=== PATIENT | female | born 1955 | race Caucasian/White ===

== ENCOUNTER → 2017-04-06 | Outpatient (CLI) | payer BC, OTHER ==
[~2017-04-06] VITALS: Ht 160 cm; Wt 68.6 kg
[~2017-04-06] MED LIST: ALEVE220 MG PO; APAP500 PO; DICLOFENAC SODI75 MG PO; ESTRADIOL 1 MG T1 M1 PO; HYDROCODONE-AP1 EAC6 PO; MELATONIN10 M1 PO; NORTRIPTYLINE H10 M2 PO; OXYCODONE-ACET1 EAC2 PO; TUMERIC/CURCUMIN PO
--- NOTE | ~2017-04-06 | HPC ---
[facility] [place] [address] PAIN MANAGEMENT CONSULTATION Name: ARTHUR WALL Room #: REG Marty Nawaf.#: [id number] Admission: 04/06/17 Attend Phys: Catracho Ravi DO Discharge: Date of : 51 Report #: [id number] THIS REPORT FOR: //name// CC: [facility] physician/PCP Catracho Ravi The patient is a 61-year-old female, prior seen in the pain clinic about 2 years ago, last visit was May 2015. Had cervical radicular symptoms at that time. Returns to pain clinic today with a new complaint, notes she has pain in the low back. She notes pain began about 6 weeks ago. She used to play golf about 4 times a week 6 weeks ago without antecedent trauma and overuse. She developed pain in the low back, it has been quite problematic. She sought care transition mgr, has had massage and physical therapy, all with nominal efficacy. She was seen by orthopedic surgeon who gave her bilateral trochanteric bursa injections with nominal efficacy. She notes pain is dull and aching, rates at 2 on a VAS at present, but it becomes quite problematic with standing and walking. States it feels like there is a great deal of weight pressing down on her back when she stands. Pain is primarily low back and in the glute. No significant radicular symptoms are noted. Has subjective weakness in her legs associated with exacerbations of pain. PHYSICAL EXAMINATION: GENERAL: Shows a 61-year-old female, BMI is 26.8 kilograms per meter squared. VITAL SIGNS: Blood pressure 134/77, pulse 51, respirations are 14. NEUROLOGIC: Alert and oriented to person, place and time, judged to be a reasonable historian. MUSCULOSKELETAL: Rises from the chair easily. Gait is tandem. Lumbar flexion is modestly limited. Very tender over the SI joints. Positive ELMER test bilaterally. Lower extremity strength is symmetric. Straight leg raise is negative. Patellar and Achilles reflexes are preserved. MRI is from 04/02/2017, shows minimal lumbar spondylosis in the low lumbar spine. No evidence of significant central stenosis and neural foraminal stenosis at any level. There is some minimal bulging at L3-L4 and an annular tear at L4-L5. Again, this does not correlate with significant classic L4 radiculopathy. ASSESSMENT: Symptomatic sacroiliac joint dysfunction with clinical exam and history, history of cervical radiculopathy, possible component of neurogenic claudication, lumbar radiculopathy, but again symptoms point primarily to sacroiliac mediated pain at present. The patient was seen for prolonged visit today from approximately 10:00 a.m. to 10:30, taken to the procedure room at 10:36. [address] [address] PAIN MANAGEMENT CONSULTATION Name: ARTHUR WALL Room #: REG FELIZ Jones#: [id number] Admission: 04/06/17 Attend Phys: Catracho Ravi DO Discharge: Date of : 51 Report #: [id number] PROCEDURE: Bilateral SI joint injection under fluoroscopy. PROCEDURE NOTE: After written and informed consent was obtained including risk of infection, nerve trauma, increased pain and weakness, the patient wishes to proceed. The patient was taken to the fluoroscopy suite, placed in the prone position. The sacroiliac joint was visualized using the C-arm, turned in an oblique fashion to align the joint. The skin overlying the area was cleansed with ChloraPrep. Skin wheal with Xylocaine was raised. A 22 gauge spinal needle was inserted into the inferior aspect of the joint. A low volume extension tubing was then attached to the needle after the stylet was removed. Negative aspiration was accomplished. A 1 mL of Omnipaque was injected which showed spread within the SI joint. 40 mg triamcinolone plus 2 mL of 0.5% preservative-free bupivacaine was injected into the joint. Needle was removed. Attention was then turned to the contralateral joint which was treated in an identical fashion. After both needles were removed the prep was washed off. Two Band-Aids were applied over the puncture sites. The patient was allowed to ambulate to the recovery room, monitored for an appropriate period of time, discharged in good and stable condition. The patient was referred to physical therapy for core strengthening. By: [id number] Catracho Ravi DO /nt
[2017-04-06 09:42] VITALS: BP 134/77
== END | disposition home or self-care (01) ==
LOC: PAIN 07:28
DX: M53.3 Sacrococcygeal disorders, not elsewhere classified (principal); M54.12 Radiculopathy, cervical region; M54.16 Radiculopathy, lumbar region

== ENCOUNTER → 2017-05-07 | Outpatient (CLI) | payer BC, OTHER ==
[~2017-05-07] VITALS: Ht 160 cm; Wt 67.3 kg
--- NOTE | ~2017-05-07 | HPC ---
[facility] [place] [address] PAIN MANAGEMENT CONSULTATION Name: ARTHUR WALL Room #: REG [facility] [id number] Admission: 05/07/17 Attend Phys: Catracho Ravi DO Discharge: Date of : 51 Report #: [id number] THIS REPORT FOR: //name// CC: [facility] physician/PCP Catracho Clement MD DATE OF SERVICE: 05/07/2017 The patient is a 61-year-old female, prior seen in the pain clinic 04/06/2017, given bilateral SI joint injections and referred to physical therapy. She had prior been seen for cervical radiculopathy back in 2014. She returns to pain clinic today noting pain continues to be problematic. SI injection at last visit did afford good yet transient relief of symptoms, the patient had specifically 50% overall improvement of baseline pain. Pain has gradually begun to recur back to baseline. She notes pain is across the low back, exacerbated with leaning forward, flexion, pushing and pulling. Relief with medication including naproxen sodium and acetaminophen. PHYSICAL EXAMINATION: Shows a 61-year-old female, BMI is 26.3 kilograms per meter squared. Subjective Visual Analog Scale is 7. Vital signs are stable. Rises from chair using armrest. Gait is tandem. Lower extremity strength is preserved. Straight leg raise is negative. Positive Charmaine test bilaterally with pain, primarily right-sided. ASSESSMENT: Symptomatic right greater than left sacroiliac mediated pain. RECOMMENDATIONS: Discussion with the patient today about therapeutic option. She has been doing physical therapy status post prior SI injection approximately 1 month ago. After discussion with the patient today, we have elected to move towards a more definitive therapy. We talked about iFuse (percutaneous sacroiliac joint fusion). Today, we have elected to proceed with a right SI joint injection under fluoroscopy without benefit of steroid. We will refer the patient to Dr. Clement for consideration for right SI percutaneous fusion. ASSESSMENT: Symptomatic lumbosacral spondylosis, sacroiliac mediated pain. PROCEDURE: Right SI joint injection under fluoroscopy without steroid. PROCEDURE NOTE: After written informed consent was obtained, the patient was taken to the fluoroscopy suite and placed in a prone position. After sterile prep and drape, skin wheal was raised. A 22-gauge stylet needle was placed to contact the inferior aspect of the right SI joint. Negative aspiration was [address] [address] PAIN MANAGEMENT CONSULTATION Name: ARTHUR WALL Room #: REG FELIZ Jones#: [id number] Admission: 05/07/17 Attend Phys: Catracho Ravi DO Discharge: Date of : 51 Report #: [id number] accomplished. 1 mL of Omnipaque was injected, which showed spread within the SI joint. There was trace extrusion. This was followed with 1 mL of a 50:50 mix of 0.5% preservative-free bupivacaine plus 1.5% preservative-free Xylocaine with 1:200,000 epinephrine. The patient had a Visual Analog Scale score of 7 on admission, noted pain was absent on discharge when sitting; with standing, walking, bending pain increased a little to 3/10, still greater than 60% overall improvement in baseline pain. We will have the patient follow up with Dr. Clement for consideration for injection. She was given a copy of the fluoroscopic image showing Omnipaque spread within the SI joint. <ELECTRONICALLY SIGNED> By: Catracho Ravi DO 05/09/17 [id number] Catracho Ravi DO /nt
[2017-05-07 13:00] VITALS: BP 125/81
== END | disposition home or self-care (01) ==
LOC: PAIN 07:23
DX: M53.3 Sacrococcygeal disorders, not elsewhere classified (principal); M47.897 Other spondylosis, lumbosacral region; Z98.890 Other specified postprocedural states

== ENCOUNTER → 2018-07-08 | Outpatient (CLI) | payer OTHER ==
[~2018-07-08] VITALS: Ht 160 cm; Wt 66.5 kg
[~2018-07-08] MED LIST changes: +HYDROCODON-ACE1 EAC7 PO
--- NOTE | ~2018-07-08 | HPC ---
[facility] [address] [place] [address] PAIN MANAGEMENT CONSULTATION Name: ARTHUR WALL Room #: REG [facility].#: [id number] Admission: 07/08/18 Attend Phys: Doroteo Hameed MD Discharge: Date of : 51 Report #: [id number] THIS REPORT FOR: //name// CC: [facility] physician/PCP Dortoeo Hameed DATE OF SERVICE: 07/08/2018 Followup visit for chronic pain. LAST VISIT: 05/07/2017 HISTORY OF PRESENT ILLNESS: The patient returns to the pain clinic today in followup. Due to insurance restrictions, she was not able to follow in my clinic and saw Dr. Mcneil at [place]. In January, she underwent 2 diagnostic medial branch nerve block procedures followed by radiofrequency ablation for her low back pain, but had no relief. She continues to complain of pain in her low back and is here today for further evaluation. Pain has been ongoing since 08/2014. She has remained active and exercising when she can. If she can, she would like to play golf. Pain is often worse during the day with standing and walking. She receives some relief with the use of anti-inflammatory medication and the use of heat. The pain is currently bilateral in the area of the lumbosacral segment. There is some localized discomfort there. It does not have significant radiating pattern. MEDICATIONS: Estradiol and melatonin. ALLERGIES: None. PAST MEDICAL HISTORY: Remarkable for ankle pinning in 1974. She had a hysterectomy in 2012. Recent arthroscopic surgery of both right and left hip performed in the last [address] 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 PQRS REVIEW: 1. She has no significant osteoarthritis. 2. BMI 26. 3. Vital Signs: Blood pressure 127/70. 4. Pain intensity 4/10. 5. She is not a fall risk. 6. She is on no blood thinners. 7. No history of hypertension. 8. She does not use opioid medication. 9. She has completed an opioid risk tool and her pain score is 0. [address] [address] PAIN MANAGEMENT CONSULTATION Name: ARTHUR WALL Room #: REG [facility].#: [id number] Admission: 07/08/18 Attend Phys: Doroteo Hameed MD Discharge: Date of : 51 Report #: [id number] 10. The functional assessment tool is high, especially for enjoyment of life, relationships with others and mood. PHYSICAL EXAMINATION: As noted. She moves easily from sitting to standing position. She ambulates with a smooth gait. She has no antalgic features. She is able to bend forward at the waist and touch her toes to the floor. This does not reproduce pain. Back extension is performed with excellent range without any discomfort. Rotational movement, [id number], tilt also performed without discomfort. ELMER test is negative. Pain in the hips is negative for internal and external rotation. Sensation and strength are normal in lower extremities. She does have some pinpoint localized tenderness over the lumbosacral segment. Pain score is 4/10. X-ray exam includes MRI dated 04/02/2017, which shows broad-based posterior disk bulging without stenosis at L2-L3 and at L3-L4 anterolisthesis. This is mild in nature. At L4-L5, there is a small central right paracentral annular tear without stenosis. IMPRESSION: Chronic localized low back pain. RECOMMENDATION: She has had recent hip procedures, but her pain does not appear to be emanating from there. She may have discogenic pain and I would at least try an epidural steroid injection. Her ongoing physical therapy should continue to progress following hip surgery and should include exercises that address back stabilization. We discussed this at some length. Twenty five minutes consultation. I provided her with a small amount of hydrocodone 5/325 one tablet b.i.d. for pain during recovery and also for severe low back pain, which is now chronic in nature dating back 4 years. Followup is planned in 1 month. May consider epidural injection at that time. By: [id number] Doroteo Haemed MD /nt
[2018-07-08 12:44] VITALS: BP 127/70
== END ==
LOC: PAIN 02:03
DX: M54.5 Low back pain (principal); G89.29 Other chronic pain; Z79.899 Other long term (current) drug therapy

== ENCOUNTER → 2018-08-12 | Outpatient (CLI) | payer OTHER ==
[~2018-08-12] VITALS: Ht 160 cm; Wt 69.0 kg
[~2018-08-12] MED LIST changes: +CELEBREX 200 M200 M1 PO
--- NOTE | ~2018-08-12 | HPC ---
[facility] [place] [address] PAIN MANAGEMENT CONSULTATION Name: ARTHUR WALL [facility] #: [facility] [id number] Admission: 08/12/18 Attend Phys: Doroteo Hameed MD Discharge: Date of : 51 Report #: [id number] THIS REPORT FOR: //name// CC: FAM unknown Doroteo Hameed DATE OF SERVICE: 08/12/2018 Followup visit for low back pain with broad-based disk bulging and stenosis at L2-3, L3-4 with anterolisthesis, center tear of L4-L5 with right paracentral annular tear. PROCEDURE: Lumbar epidural steroid injection. INDICATIONS FOR PROCEDURE: The patient was assessed on 07/08/2018. We have had preauthorization approval to go forward with an injection. Her pain has remained a bit of a conundrum. She has had recent hip procedures with ongoing pain. She has had treatments of her sacroiliac joint and also Dr. Mcneil has performed radiofrequency ablation with no success. She is here today for an epidural injection. We discussed potential risks and benefits and her goals of treatment. Questions answered and she is ready to proceed. DESCRIPTION OF PROCEDURE: The patient was taken to fluoroscopic suite, placed prone, skin prepped with ChloraPrep. Skin anesthetized over the L4-L5 interspace to the right of midline. A 20-gauge Tuohy epidural needle advanced in the epidural space with loss of resistance technique. There was no blood or CSF aspirated. 1 mL of Omnipaque injected. Good spread of dye was observed in the epidural space, followed by 3 mL of 0.5% lidocaine mixed with 80 mg triamcinolone. She tolerated the procedure well and was observed for 45 minutes and discharged. Followup visit planned in the pain clinic in 1-2 months. By: [id number] Doroteo Hameed MD /nt
[2018-08-12 12:34] VITALS: BP 127/63
--- NOTE | 2018-08-12 12:35 | NUR ---
Pain Clinic Assessment: 1. History of Osteoarthritis: Not Applicable History of Rheumatoid Arthritis: Not Applicable 2. Height: 5 ft. 3 in. 160.0 cm. Weight: 152.2 lb. oz. 69.037 kg. Patient's BMI: 27.0 3. Vital Signs: BP: 127/63 Pulse: 58 Resp: 18 Temp: 02 Sat: 97 ECG Mon: 4. Pain Intensity: 5 5. Fall Risk: Dizziness: N Needs help standing or walking: N Fallen in the last 3 months: N Fall risk comments: 6. Patient on Blood Thinner: None 7. History of Hypertension: N 8. Opioid Therapy greater than 6 weeks: N Opiate Contract Signed: 9. Risk Assessment Tool Provided: LOW RISK 0/3 10. Functional Assessment Tool: 57/70 11. Recreational Drug Use: Never Drug Type: Tobacco Use: Never Smoker Tobacco Type: Amount or Packs/day: How Many Years: Alcohol Use: No Frequency: Quant:
== END | disposition home or self-care (01) ==
LOC: PAIN 07:16
DX: M51.26 Other intervertebral disc displacement, lumbar region (principal); M48.061 Spinal stenosis, lumbar region without neurogenic claudication; M43.16 Spondylolisthesis, lumbar region

== ENCOUNTER → 2018-10-31 | Outpatient (CLI) | payer OTHER ==
[~2018-10-31] VITALS: Ht 160 cm; Wt 68.0 kg
[~2018-10-31] MED LIST changes: +ROXICODONE5 M2 PO
--- NOTE | ~2018-10-31 | HPC ---
[facility] [address] [address] [place] [address] PAIN MANAGEMENT CONSULTATION Name: ARTHUR WALL Room #: REG [facility].#: [id number] Admission: 10/31/18 ������������������ Attend Phys: Doroteo Hameed MD Discharge: ������������������ Date of : 51 Report #: [id number] THIS REPORT FOR: //name// CC: [facility] physician/PCP FAM unknown Doroteo Hameed DATE OF SERVICE: 10/31/2018 CHIEF COMPLAINT: Low back pain with anterolisthesis of L3 on L4, central tear of L4-L5 and chronic low back pain. The patient returns today for repeat epidural steroid injection. The initial injection was somewhat helpful. Duration of response was not as long as we had hoped. We discussed today repeating the injection at L5-S1. Her last injection was at L4-L5. Pain is low. There is some consideration given to her facet syndrome or perhaps even a sacroiliac joint dysfunction. Much of her pain seems to be mechanical in nature, but there may be a radicular component as well. We decided to repeat the epidural injection today at a lower level, but we will consider the possibility of repeating radiofrequency. PHYSICAL EXAMINATION: She is a pleasant 63-year-old. Blood pressure 141/59, heart rate 16 and respirations 14. She can move independently from sitting to standing position. She has excellent range of motion of the lumbar spine in flexion and extension neither of which dramatically increased pain. Lateral tilt and [id number]-[id number]-iwvw motions do reproduce some pain low in the lumbosacral segment. She has localized tenderness over the lower facet joints. This may also be from the upper sacroiliac regions. The pain is not exquisite in this region. Straight leg raising is negative for radicular symptoms into the legs, but she does have some pain into her hips. She describes it as a dull catching sensation. Intensity is a 7-8/10. IMPRESSION: Low back pain with degenerative disk disease. Some lumbosacral spondylosis with radiculopathy. RECOMMENDATION: Epidural steroid injection L5-S1 under fluoroscopic guidance. PROCEDURE: She was taken to the fluoroscopic suite, placed prone, skin prepped with ChloraPrep. Skin anesthetized over the L5-S1 interspace. A 20-gauge Tuohy epidural needle was advanced into the epidural space slightly to the right of midline. A 1 mL of Omnipaque was injected. Good spread of dye observed all along the right side, but not encroaching across to the left. I injected half of my triamcinolone 40 mg along with 2 mL of 0.5% lidocaine in that location. The needle was then withdrawn and repositioned slightly to the left of midline where a good loss of resistance was once again obtained. 0.25 mL of Omnipaque demonstrated epidural spread on the left and I injected on this side an [facility] [address] [place] [address] PAIN MANAGEMENT CONSULTATION Name: GUERAARTHUR EAGLE Diomedes Room #: REG FELIZ Jones#: [id number] Admission: 10/31/18 ������������������ Attend Phys: Doroteo Hameed MD Discharge: ������������������ Date of : 51 Report #: [id number] additional 40 mg of triamcinolone and 2 mL of 0.5% lidocaine. She tolerated the procedure well. She was taken to the recovery room where she was observed for 45 minutes. There were no complications. Her pain score was 0 at discharge and will follow up in a month or two. ��������������������������������������������� ���������������������������������������� By: ��������������������������������������������� [id number] Doroteo Hameed MD /nt
[2018-10-31 14:05] VITALS: BP 141/59
--- NOTE | 2018-10-31 14:24 | NUR ---
Pain Clinic Assessment: 1. History of Osteoarthritis: Not Applicable History of Rheumatoid Arthritis: Not Applicable 2. Height: 5 ft. 3 in. 160.0 cm. Weight: 150.0 lb. oz. 68.040 kg. Patient's BMI: 26.6 3. Vital Signs: BP: 141/59 Pulse: 61 Resp: 14 Temp: 02 Sat: 97 ECG Mon: 4. Pain Intensity: 7-8 5. Fall Risk: Dizziness: N Needs help standing or walking: N Fallen in the last 3 months: N Fall risk comments: 6. Patient on Blood Thinner: None 7. History of Hypertension: N 8. Opioid Therapy greater than 6 weeks: N Opiate Contract Signed: 9. Risk Assessment Tool Provided: LOW RISK 0/3 10. Functional Assessment Tool: 57/70 11. Recreational Drug Use: Never Drug Type: Tobacco Use: Never Smoker Tobacco Type: Amount or Packs/day: How Many Years: Alcohol Use: No Frequency: Quant:
== END | disposition home or self-care (01) ==
LOC: PAIN 07:02
DX: M51.16 Intervertebral disc disorders with radiculopathy, lumbar region (principal); M53.3 Sacrococcygeal disorders, not elsewhere classified; Z79.899 Other long term (current) drug therapy; Z98.890 Other specified postprocedural states; G89.29 Other chronic pain; M54.5 Low back pain

== ENCOUNTER → 2019-02-24 | Outpatient (CLI) | payer OTHER ==
[~2019-02-24] VITALS: Ht 160 cm; Wt 67.0 kg
[~2019-02-24] MED LIST changes: +DICLOFENAC SOD50 M1 PO
--- NOTE | ~2019-02-24 | HPC ---
[facility] [address] [address] PAIN MANAGEMENT CONSULTATION Name: ARTHUR WALL [facility] [id number] Admission: 02/24/19 ������������������ Attend Phys: Doroteo Hameed MD Discharge: ������������������ Date of : 51 Report #: [id number] THIS REPORT FOR: //name// CC: [facility] physician/PCP FAM unknown Doroteo Hameed DATE OF SERVICE: 02/24/2019 The patient is in pain clinic today for 25-minute followup visit. Multiple questions were asked and answered about treatment of her chronic low back pain. She had a number of questions about anti-inflammatory medications and we went through great detail discussing the NSAID class, the risks and benefits. If she takes naproxen sodium twice daily, she does get relief. She would like to continue on it. I discussed the GI, renal and cardiac complications and side effects. She described the pain as a sharp pain at times and sometimes dull. It feels like there is a catch in her back. Pain intensity is 7-8/10. She has received benefit from epidural injections up to 90% pain relief for 2-3 months at times. She would like to get another epidural injection if she could. PHYSICAL EXAMINATION: She is pleasant, alert and oriented. No signs of anxiety, depression or overmedication. She is 5 feet 3 inches with a BMI of 26.2. Blood pressure 126/65, heart rate 56, respirations 14. She moves easily from sitting to standing position without difficulty. She has modest straight leg raising bilaterally. Sensation is intact. No focal weakness is noted. Deep tendon reflexes are equal. IMPRESSION: 1. Chronic low back pain with radiculopathy. RECOMMENDATION: Epidural steroid injection under fluoroscopic guidance. She was taken to fluoroscopic suite for treatment. She was placed prone, skin was prepped with ChloraPrep. Skin anesthetized over the L4-L5 interspace and a 20-gauge Tuohy epidural needle advanced in the epidural space with loss of resistance technique. There was no blood or CSF aspirated. A 1 mL of Omnipaque injected. Good spread of dye observed in the epidural space, was followed by 3 mL of 0.5% lidocaine mixed with 80 mg triamcinolone. She tolerated the procedure well and was observed for 45 minutes and discharged. [address] [address] PAIN MANAGEMENT CONSULTATION Name: ARTHUR WALL Room #: REG Marty Jones#: [id number] Admission: 02/24/19 ������������������ Attend Phys: Doroteo Hameed MD Discharge: ������������������ Date of : 51 Report #: [id number] Followup visit planned as needed. ��������������������������������������������� ���������������������������������������� By: ��������������������������������������������� [id number] Doroteo Hameed MD /nt
[2019-02-24 10:42] VITALS: BP 126/65
--- NOTE | 2019-02-24 11:02 | NUR ---
Pain Clinic Assessment: 1. History of Osteoarthritis: Not Applicable History of Rheumatoid Arthritis: Not Applicable 2. Height: 5 ft. 3 in. 160.0 cm. Weight: 147.6 lb. oz. 66.951 kg. Patient's BMI: 26.2 3. Vital Signs: BP: 126/65 Pulse: 56 Resp: 14 Temp: 02 Sat: 97 ECG Mon: 4. Pain Intensity: 7-8 5. Fall Risk: Dizziness: N Needs help standing or walking: N Fallen in the last 3 months: N Fall risk comments: 6. Patient on Blood Thinner: None 7. History of Hypertension: N 8. Opioid Therapy greater than 6 weeks: N Opiate Contract Signed: 9. Risk Assessment Tool Provided: LOW RISK 0/3 10. Functional Assessment Tool: 57/70 11. Recreational Drug Use: Never Drug Type: Tobacco Use: Never Smoker Tobacco Type: Amount or Packs/day: How Many Years: Alcohol Use: No Frequency: Quant:
== END | disposition home or self-care (01) ==
LOC: PAIN 06:52
DX: M54.16 Radiculopathy, lumbar region (principal); G89.29 Other chronic pain; Z98.890 Other specified postprocedural states; Z79.891 Long term (current) use of opiate analgesic

== ENCOUNTER → 2020-10-07 | Outpatient (CLI) | payer OTHER, MEDICARE ==
[~2020-10-07] VITALS: Ht 160 cm; Wt 65.8 kg
[~2020-10-07] MED LIST changes: +ALEVE220 M1 PO; +TYLENOL325 M1 PO
[2020-10-07 10:11] VITALS: BP 121/70
--- NOTE | 2020-10-07 10:39 | NUR ---
Pain Clinic Assessment: 1. History of Osteoarthritis: Not Applicable History of Rheumatoid Arthritis: Not Applicable 2. Height: 5 ft. 3 in. 160.0 cm. Weight: 145.0 lb. oz. 65.772 kg. Patient's BMI: 25.7 3. Vital Signs: BP: 121/70 Pulse: 56 Resp: 14 Temp: 02 Sat: 98 ECG Mon: 4. Pain Intensity: 4 5. Fall Risk: Dizziness: N Needs help standing or walking: N Fallen in the last 3 months: N Fall risk comments: 6. Patient on Blood Thinner: None 7. History of Hypertension: N 8. Opioid Therapy greater than 6 weeks: N Opiate Contract Signed: 9. Risk Assessment Tool Provided: LOW RISK 0/3 10. Functional Assessment Tool: 11. Recreational Drug Use: Never Drug Type: Tobacco Use: Never Smoker Tobacco Type: Amount or Packs/day: How Many Years: Alcohol Use: No Frequency: Quant:
== END | disposition home or self-care (01) ==
LOC: PAIN 06:40
PROVIDERS: ATTEND Anesthesiology Pain Medicine
DX: M79.18 Myalgia, other site (principal); M75.21 Bicipital tendinitis, right shoulder; M54.16 Radiculopathy, lumbar region; M43.16 Spondylolisthesis, lumbar region; Z98.890 Other specified postprocedural states; Z79.899 Other long term (current) drug therapy

== ENCOUNTER → 2020-11-11 | Outpatient (CLI) | payer OTHER, MEDICARE ==
[~2020-11-11] VITALS: Ht 160 cm; Wt 64.1 kg
[2020-11-11 13:03] VITALS: BP 127/49
--- NOTE | 2020-11-11 13:18 | NUR ---
Pain Clinic Assessment: 1. History of Osteoarthritis: Not Applicable History of Rheumatoid Arthritis: Not Applicable 2. Height: 5 ft. 3 in. 160.0 cm. Weight: 141.4 lb. oz. 64.139 kg. Patient's BMI: 25.1 3. Vital Signs: BP: 127/49 Pulse: 63 Resp: 14 Temp: 02 Sat: 100 ECG Mon: 4. Pain Intensity: 4 5. Fall Risk: Dizziness: N Needs help standing or walking: N Fallen in the last 3 months: N Fall risk comments: 6. Patient on Blood Thinner: None 7. History of Hypertension: N 8. Opioid Therapy greater than 6 weeks: N Opiate Contract Signed: 9. Risk Assessment Tool Provided: LOW RISK 0/3 10. Functional Assessment Tool: 11. Recreational Drug Use: Never Drug Type: Tobacco Use: Never Smoker Tobacco Type: Amount or Packs/day: How Many Years: Alcohol Use: No Frequency: Quant:
== END | disposition home or self-care (01) ==
LOC: PAIN 10:56
PROVIDERS: ATTEND Anesthesiology Pain Medicine
DX: M54.16 Radiculopathy, lumbar region (principal); G89.29 Other chronic pain; Z98.890 Other specified postprocedural states; Z79.899 Other long term (current) drug therapy

== ENCOUNTER → 2021-05-23 | Outpatient (CLI) | payer OTHER, MEDICARE ==
[~2021-05-23] VITALS: Ht 160 cm; Wt 66.2 kg
[2021-05-23 09:33] VITALS: BP 146/69
--- NOTE | 2021-05-23 09:39 | NUR ---
[facility] Assessment: 1. History of Osteoarthritis: Not Applicable History of Rheumatoid Arthritis: Not Applicable 2. Height: 5 ft. 3 in. 160.0 cm. Weight: 146.0 lb. oz. 66.225 kg. Patient's BMI: 25.9 3. Vital Signs: BP: 146/69 Pulse: 58 Resp: 14 Temp: 02 Sat: 100 ECG Mon: 4. Pain Intensity: 5 5. Fall Risk: Dizziness: N Needs help standing or walking: N Fallen in the last 3 months: N Fall risk comments: 6. Patient on Blood Thinner: None 7. History of Hypertension: N 8. Opioid Therapy greater than 6 weeks: N Opiate Contract Signed: 9. Risk Assessment Tool Provided: LOW RISK 0 10. Functional Assessment Tool: 11. Recreational Drug Use: Never Drug Type: Tobacco Use: Never Smoker Tobacco Type: Amount or Packs/day: How Many Years: Alcohol Use: No Frequency: Quant:
== END | disposition home or self-care (01) ==
LOC: PAIN 06:54
PROVIDERS: ATTEND Anesthesiology Pain Medicine
DX: M47.816 Spondylosis without myelopathy or radiculopathy, lumbar region (principal); G89.29 Other chronic pain; Z98.890 Other specified postprocedural states; Z79.899 Other long term (current) drug therapy